=== PATIENT | male | born 1935 | race Caucasian/White ===

== ENCOUNTER 2018-08-04 14:39 | Outpatient (CLI) | payer MEDICARE ==
--- NOTE | 2018-08-04 15:48 | BD ---
BONE DENSITOMETRY USING DEXA: HISTORY: Postmenopausal screening for osteoporosis. FINDINGS: Lumbar Spine: BMD (g/cm2) L1 1.203 T-Score: 1.2 Z-Score: 2.3 L2 1.411 T-Score: 2.9 Z-Score: 4.1 L3 1.214 T-Score: 1.0 Z-Score: 2.2 L4 1.386 T-Score: 2.7 Z-Score: 3.9 L1-L4 1.309 T-Score: 2.0 Z-Score: 3.2 Femoral Neck: 0.642 T-Score: -2.1 Z-Score: -0.6 Total Femur: 0.929 T-Score: -0.7 Z-Score: 0.4 The 10-year fracture risk for a major osteoporotic fracture is 9.7% and for a hip fracture is 4%. Impression: Osteopenia. POS: [email or web address]
== END 2018-08-04 14:40 | disposition home or self-care (01) ==
LOC: BICMAMMO 14:39
PROVIDERS: ATTEND Internal Medicine Rheumatology
DX: M81.0 Age-related osteoporosis without current pathological fracture (principal); M85.859 Other specified disorders of bone density and structure, unspecified thigh
CPT/HCPCS: 77080

== ENCOUNTER 2018-12-14 13:06 | Outpatient (CLI) | payer MEDICARE ==
--- NOTE | 2018-12-14 13:50 | BD ---
EXAM: DEXA bone density examination HISTORY: 83-year-old male with osteoporosis COMPARISON: 08/04/2018 FINDINGS: L1--bone mineral density 1.167 g/sq cm; T score 0.9 L2--bone mineral density 1.430 g/sq cm; T score 3.1 L3--bone mineral density 1.215 g/sq cm; T score 1.0 L4--bone mineral density 1.348 g/sq cm; T score 2.3 Total L1-L4--bone mineral density g/sq cm; T score Right femoral neck--bone mineral density0.628; T score -2.2 Total proximal right femur--bone mineral density 0.874; T score -1.1 Left femoral neck--bone mineral density0.600; T score -2.4 Total proximal left femur--bone mineral density 0.882; T score -1.0 IMPRESSION: Osteopenia This patient has a 10 year WHO fracture risk of a major osteoporotic fracture of 11% and of a hip fracture of 4.8%. When compared to the prior examination, the bone density in the left hip has decreased approximately 5%.
== END 2018-12-14 13:07 | disposition home or self-care (01) ==
LOC: BICMAMMO 13:06
PROVIDERS: ATTEND Internal Medicine Rheumatology
DX: M81.0 Age-related osteoporosis without current pathological fracture (principal); M85.851 Other specified disorders of bone density and structure, right thigh; M85.852 Other specified disorders of bone density and structure, left thigh
CPT/HCPCS: 77080

== ENCOUNTER 2021-02-04 12:25 | Outpatient (CLI) | payer MEDICARE | END 2021-02-04 12:26 | disposition home or self-care (01) | LOC: BICMAMMO 12:25 | PROVIDERS: ATTEND Internal Medicine Rheumatology | DX: M81.0 Age-related osteoporosis without current pathological fracture (principal) | CPT/HCPCS: 77080 ==